=== PATIENT | female | born 1980 | race Two or more races ===

== ENCOUNTER 2018-02-03 10:24 | Emergency (ER) | payer OTHER ==
[~2018-02-03] VITALS: Ht 170.2 cm; Wt 68.0 kg
== END 2018-02-03 18:07 | disposition home or self-care (01) ==
LOC: ER 10:24
DX: O98.511 Other viral diseases complicating pregnancy, first trimester (principal); B34.9 Viral infection, unspecified; Z34.81 Encounter for supervision of other normal pregnancy, first trimester